=== PATIENT | female | born 1990 | race African-American/Black ===

== ENCOUNTER 2022-06-26 15:48 | Emergency (ER) | payer BC ==
[~2022-06-26] VITALS: Ht 165.1 cm; Wt 113.4 kg
--- NOTE | 2022-06-26 16:15 | NUR ---
bibself c/o of rib pain, getting worst when sneezing would like to get tested for covid, + runny nose.
[2022-06-26] MEDS ORDERED: KETOROLAC TROMETHAMINE INJ 60 MG/2 ML VIAL IM ONE (17:00)
[2022-06-26] MEDS ORDERED: LORATADINE 10 MG TABLET PO ONE (17:00)
--- NOTE | 2022-06-26 17:05 | NUR ---
X-RAY TECH AT BEDSIDE
[2022-06-26] MEDS ORDERED: LORATADINE 10 MG TABLET ONE (17:14)
[2022-06-26] MEDS ORDERED: KETOROLAC TROMETHAMINE INJ 30 MG/ML VIAL ONE (17:14)
--- NOTE | 2022-06-26 17:15 | NUR ---
SWAB FOR COVID19 AND RAPID INFLUENZA SENT TO LAB
[2022-06-26] MEDS ORDERED: IBUP-1955 PO (18:16)
[2022-06-26] MEDS ORDERED: MAG355OR18 PO (18:16)
[2022-06-26] MEDS ORDERED: LIDO30AD10 TP (18:16)
[2022-06-26] MEDS ORDERED: LIDOCAINE 5% (PATCH) 1 EA PATCH TP ONE ×2 (18:21→18:30)
--- NOTE | 2022-06-26 18:30 | NUR ---
Patient discharged to home in stable condition. Written and verbal after care instructions given. Patient verbalizes understanding of instruction.
[2022-06-26 18:36] VITALS: BP 130/89
== END 2022-06-26 18:30 | disposition home or self-care (01) ==
LOC: ER 15:53
DX: R07.81 Pleurodynia (principal); J06.9 Acute upper respiratory infection, unspecified; B97.89 Other viral agents as the cause of diseases classified elsewhere; Z20.822 Contact with and (suspected) exposure to COVID-19; Z87.11 Personal history of peptic ulcer disease
CPT/HCPCS: 99285; 87426; 96372; 93005; 87804 ×2; 71100; 71045; J1885; C9803